=== PATIENT | female | born 1985 | race Caucasian/White ===

== ENCOUNTER 2017-11-10 11:08 | Emergency (ER) | payer OTHER ==
[~2017-11-10] VITALS: Ht 154.9 cm; Wt 81.3 kg
[~2017-11-10 11:08] MED LIST: Amoxicillin500 MG PO; Ativan1 MG PO; BENTYL10 MG PO; Benadryl 50 mg50 MG PO; CEPH500 PO; CLOM50A PO; CLON.5 PO; CODACE30 PO; CYCL10 PO; Cheratussin AC118 ML PO; DIPATR PO; DIVA125EC PO; DIVA500EC PO; FAMO40 PO; HYDACE5 PO; HYDMOR2 PO; HYDR1TAB94 PO; IBUP400 PO; IBUP800; IBUP800 PO; MECL25 PO; METR500 PO; MULVITMINE; MULVITMINE PO; Miralax17 GM PO; NAPR500 PO; NAPR550 PO; OLAN5 PO; OMEP40CA12 PO; ONDA4ODT MM; ONDA8 PO; OXYACE5T PO; OXYC5 PO; PALI6TA PO; PROM25; PROM25 PO; PROM25S; Percocet 5-3251 EACH PO; Phenergan25 M1 PO; QUET100 PO; QUET200 PO; RXCODACET PO; RXHYD5325 PO; RXHYDACE PO; RXHYDMOR2 PO; RXOXYACE PO; SERT100 PO; SUBOXONE 8 MG-1 EACH SL; SULTRIDS PO; Sucralfate1 GM PO; TAMS.4ER PO; TRAM50 PO; TRAZ100 PO; TRIM250 PO; Ultram50 MG PO; Zofran Odt4 MG SL; Zofran4 MG PO
[2017-11-10] MEDS ORDERED: BUPRENORPHN-NA1 EACH SL (11:30)
[2017-11-10] MEDS ORDERED: Adipex-P37.5 M1 PO (11:31)
[2017-11-10] MEDS ORDERED: Prednisone20 MG PO (12:09)
[2018-06-08] MEDS ORDERED: PRAZ1 PO (14:12)
[2018-06-08] MEDS ORDERED: QUET300 PO (14:12)
[2018-06-08] MEDS ORDERED: LAMO100 PO (14:13)
[2018-09-21] MEDS ORDERED: LITH300C PO (17:41)
[2018-09-21] MEDS ORDERED: Kristalose20 GM PO (18:39)
== END 2017-11-10 12:17 | disposition home or self-care (01) ==
LOC: ER 11:08
DX: R09.1 Pleurisy (principal); Z88.8 Allergy status to other drugs, medicaments and biological substances; Z79.899 Other long term (current) drug therapy; F31.9 Bipolar disorder, unspecified; Z87.891 Personal history of nicotine dependence
CPT/HCPCS: 71046; 99283

== ENCOUNTER → 2018-04-01 | Outpatient (CLI) | payer OTHER ==
[~2018-04-01] MED LIST changes: +Adipex-P37.5 M1 PO; +BUPRENORPHN-NA1 EACH SL; +Prednisone20 MG PO
== END ==
LOC: LAB SHORT 13:08 → LAB SRC 13:08
DX: Z51.81 Encounter for therapeutic drug level monitoring (principal); Z79.899 Other long term (current) drug therapy; Z87.898 Personal history of other specified conditions
CPT/HCPCS: G0480

== ENCOUNTER 2018-06-15 10:28 | Day surgery (SDC) | payer OTHER ==
[~2018-06-15] VITALS: Ht 154.9 cm; Wt 75.8 kg
[~2018-06-15 10:28] MED LIST changes: +LAMO100 PO; +PRAZ1 PO; +QUET300 PO
== END 2018-06-15 13:45 | disposition home or self-care (01) ==
LOC: ORSCSDS 10:28
PROVIDERS: Student in an Organized Health Care Education/Training Program
PROC: 0DBK8ZX Excision of Ascending Colon, Via Natural or Artificial Opening Endoscopic, Diagnostic (ICD-10-PCS; principal; 2018-06-15 11:45)
PROC: 0D5P8ZZ Destruction of Rectum, Via Natural or Artificial Opening Endoscopic (ICD-10-PCS; principal; 2018-06-15 11:45)
DX: K62.5 Hemorrhage of anus and rectum (principal); D12.2 Benign neoplasm of ascending colon; K55.20 Angiodysplasia of colon without hemorrhage; K64.4 Residual hemorrhoidal skin tags; K64.8 Other hemorrhoids; F31.9 Bipolar disorder, unspecified; F17.210 Nicotine dependence, cigarettes, uncomplicated; Z79.899 Other long term (current) drug therapy
CPT/HCPCS: 88305; J7120

== ENCOUNTER 2018-08-26 15:28 | Emergency (ER) | payer OTHER ==
[~2018-08-26] VITALS: Ht 154.9 cm; Wt 77.1 kg
[2018-08-26 15:51] LABS: Source, Urine Clean Catch
[2018-08-26 15:59] LABS: Appearance, Urine Hazy (Clear); Bilirubin, Urine Neg (Neg); Blood, Urine 2+ (Neg); Color, Urine Yellow (P-Yellow); Glucose Qualitative, Urine 2+ (Neg); Ketones, Urine 1+ (Neg); Leukocyte Esterase, Urine Neg (Neg); Nitrite, Urine Neg (Neg); Protein, Urine 1+ (Neg); Urobilinogen, Urine 1+ (Normal)
[2018-08-26 16:18] LABS: Squamous Epithelial Cells Mod /hpf (Few)
[2018-08-26 16:19] LABS: Bacteria Rare /hpf; White Blood Cells, Urine Not Seen /hpf (0-5)
[2018-08-26 16:56] LABS: BASOPHILS ABSOLUTE AUTO 0.02 K/mm3 (0.00-0.23); BASOPHILS PERCENT AUTO 0 % (0-2); EOSINOPHILS ABSOLUTE AUTO 0.08 K/mm3 (0.00-0.68); EOSINOPHILS PERCENT AUTO 1 % (0-6); Hematocrit 39.5 % (33.0-51.0); Hemoglobin 13.3 g/dL (11.5-16.0); IMMATURE GRAN ABSOLUTE AUTO 0.02 K/mm3 (0.00-0.10); IMMATURE GRAN PERCENT AUTO 0 % (0-1); LYMPHOCYTES ABSOLUTE AUTO 2.67 K/mm3 (0.84-5.20); LYMPHOCYTES PERCENT AUTO 31 % (21-46); MONOCYTES ABSOLUTE AUTO 0.48 K/mm3 (0.16-1.47); MONOCYTES PERCENT AUTO 6 % (4-13); Mean Corpuscular HGB 28.3 pg (26.0-34.0); Mean Corpuscular HGB Conc 33.7 g/dL (31.5-36.5); Mean Corpuscular Volume 84 fL (80-100); Mean Platelet Volume 9.2 fL (9.1-12.4); NEUTROPHILS ABSOLUTE AUTO 5.31 K/mm3 (1.96-9.15); NEUTROPHILS PERCENT AUTO 62 % (41-73); Platelet Count 322 K/mm3 (150-400); RDW Coefficient Variation 12.4 % (11.7-14.2); RDW Standard Deviation 38.2 fL (35.1-46.3); White Blood Cell Count 8.58 K/mm3 (4.00-11.30)
[2018-08-26 17:12] LABS: Alanine Aminotransfer (ALT/SGP 24 U/L (12-78); Albumin, Blood 3.7 g/dL (3.4-5.0); Alk Phos 108 U/L (50-136); Anion Gap 6 mmol/L (6-16); Aspartate Aminotrans (AST/SGOT 12 U/L (12-37); Bilirubin, Total 0.2 mg/dL (0.1-1.0); Blood Urea Nitrogen 12 mg/dL (8-24); CO2, Blood 28 mmol/L (21-32); Calcium, Blood 8.7 mg/dL (8.5-10.1); Chloride, Blood 103 mmol/L (98-108); Creatinine, Blood 0.57 mg/dL (0.40-1.00); Globulin, Blood 3.7 g/dL (2.2-4.0); Glomerular Filtration Rate >60 (60-); Glucose, Blood 90 mg/dL (70-99); Potassium, Blood 3.9 mmol/L (3.5-5.5); Sodium, Blood 137 mmol/L (136-145); Total Protein, Blood 7.4 g/dL (6.4-8.2)
[2018-08-26] MEDS ORDERED: Miralax17 GM PO (18:08)
[2018-08-26] MEDS ORDERED: Zofran Odt4 MG SL (18:08)
== END 2018-08-26 18:32 | disposition home or self-care (01) ==
LOC: ER 15:28
PROVIDERS: Emergency Medicine; Physician Assistant
DX: K59.00 Constipation, unspecified (principal); F31.9 Bipolar disorder, unspecified; F17.210 Nicotine dependence, cigarettes, uncomplicated; Z91.048 Other nonmedicinal substance allergy status; Z88.5 Allergy status to narcotic agent; Z88.8 Allergy status to other drugs, medicaments and biological substances; Z79.899 Other long term (current) drug therapy; Z87.442 Personal history of urinary calculi
CPT/HCPCS: 36415; 74176; 76770; 76856; 80053; 81001; 81025; 85025; 96361; 96374; 96375; 99284-25; J1885; J2405; J7030

== ENCOUNTER 2019-07-24 10:13 | Emergency (ER) | payer OTHER ==
[~2019-07-24] VITALS: Ht 154.9 cm; Wt 68.0 kg
[~2019-07-24 10:13] MED LIST changes: +Kristalose20 GM PO; +LITH300C PO
== END 2019-07-24 12:01 | disposition home or self-care (01) ==
LOC: ER 10:13
DX: S63.502A Unspecified sprain of left wrist, initial encounter (principal); F31.9 Bipolar disorder, unspecified; Z87.442 Personal history of urinary calculi; F17.210 Nicotine dependence, cigarettes, uncomplicated; Z91.048 Other nonmedicinal substance allergy status; Z88.8 Allergy status to other drugs, medicaments and biological substances; Z79.899 Other long term (current) drug therapy; X58.XXXA Exposure to other specified factors, initial encounter
CPT/HCPCS: 29125; 73110; 99283-25

== ENCOUNTER → 2020-05-15 | Outpatient (CLI) | payer OTHER ==
[~2020-05-15] MED LIST changes: +Coumadin5 MG PO; +GABA300 PO; +Jantoven5 MG PO; +Lovenox80 MG/0.8 SC; +Monodox100 MG PO; +Penicillin V P500 MG PO
== END | disposition home or self-care (01) ==
LOC: LAB 17:40 → LAB SHORT 17:40
DX: L08.9 Local infection of the skin and subcutaneous tissue, unspecified (principal)
CPT/HCPCS: 87070; 87075; 87147; 87205

== ENCOUNTER → 2020-05-17 | Outpatient (CLI) | payer OTHER | END | disposition home or self-care (01) | LOC: PLD 12:35 → LAB SHORT 12:35 | DX: M79.3 Panniculitis, unspecified (principal); K65.4 Sclerosing mesenteritis; Z51.81 Encounter for therapeutic drug level monitoring; Z79.899 Other long term (current) drug therapy | CPT/HCPCS: 88304 ==

== ENCOUNTER 2020-07-21 16:31 | Emergency (ER) | payer OTHER ==
[~2020-07-21] VITALS: Ht 154.9 cm; Wt 85.3 kg
[2020-07-21 17:18] LABS: BASOPHILS ABSOLUTE AUTO 0.05 K/mm3 (0.00-0.23); BASOPHILS PERCENT AUTO 1 % (0-2); EOSINOPHILS ABSOLUTE AUTO 0.32 K/mm3 (0.00-0.68); EOSINOPHILS PERCENT AUTO 4 % (0-6); Hematocrit 44.9 % (33.0-51.0); Hemoglobin 14.8 g/dL (11.5-16.0); IMMATURE GRAN ABSOLUTE AUTO 0.02 K/mm3 (0.00-0.10); IMMATURE GRAN PERCENT AUTO 0 % (0-1); LYMPHOCYTES ABSOLUTE AUTO 3.52 K/mm3 (0.84-5.20); LYMPHOCYTES PERCENT AUTO 38 % (21-46); MONOCYTES ABSOLUTE AUTO 0.53 K/mm3 (0.16-1.47); MONOCYTES PERCENT AUTO 6 % (4-13); Mean Corpuscular Volume 85 fL (80-100); Mean Platelet Volume 9.1 fL (9.1-12.4); NEUTROPHILS ABSOLUTE AUTO 4.77 K/mm3 (1.96-9.15); NEUTROPHILS PERCENT AUTO 52 % (41-73); Platelet Count 357 K/mm3 (150-400); RDW Coefficient Variation 13.2 % (11.7-14.2); RDW Standard Deviation 41.1 fL (35.1-46.3); Red Blood Cell Count 5.29 M/mm3 (3.80-5.20); White Blood Cell Count 9.21 K/mm3 (4.00-11.30)
[2020-07-21 17:37] LABS: Alanine Aminotransfer (ALT/SGP 24 U/L (12-78); Albumin, Blood 3.8 g/dL (3.4-5.0); Albumin/Globulin Ratio 0.9 (0.8-1.8); Alk Phos 108 U/L (50-136); Anion Gap 5 mmol/L (6-16); Aspartate Aminotrans (AST/SGOT 13 U/L (12-37); Bilirubin, Total 0.1 mg/dL (0.1-1.0); Blood Urea Nitrogen 10 mg/dL (8-24); CO2, Blood 25 mmol/L (21-32); Calcium, Blood 9.1 mg/dL (8.5-10.1); Chloride, Blood 111 mmol/L (98-108); Creatinine, Blood 0.63 mg/dL (0.40-1.00); Globulin, Blood 4.1 g/dL (2.2-4.0); Glomerular Filtration Rate >60 (60-); Glucose, Blood 108 mg/dL (70-99); Potassium, Blood 3.8 mmol/L (3.5-5.5); Sodium, Blood 141 mmol/L (136-145); Total Protein, Blood 7.9 g/dL (6.4-8.2)
[2020-07-21 18:22] LABS: Source, Urine Clean Catch
[2020-07-21 18:35] LABS: Appearance, Urine Hazy (Clear); Bilirubin, Urine Neg (Neg); Blood, Urine 5+ (Neg); Color, Urine Amber (P-Yellow); Glucose Qualitative, Urine Neg (Neg); Ketones, Urine Neg (Neg); Leukocyte Esterase, Urine Neg (Neg); Nitrite, Urine Neg (Neg); Protein, Urine 1+ (Neg); Specific Gravity, Urine 1.025 (1.003-1.022); Urobilinogen, Urine 1+ (Normal)
[2020-07-21 18:41] LABS: Bacteria Many /hpf; Mucus Mod (0-Heavy); Squamous Epithelial Cells Mod /hpf (Few)
[2020-07-21] MEDS ORDERED: CEFP200 PO (19:55)
== END 2020-07-21 20:48 | disposition home or self-care (01) ==
LOC: ER 16:31
PROVIDERS: Physician Assistant
DX: R10.9 Unspecified abdominal pain (principal); R11.0 Nausea; F17.210 Nicotine dependence, cigarettes, uncomplicated; Z91.09 Other allergy status, other than to drugs and biological substances; Z88.8 Allergy status to other drugs, medicaments and biological substances; Z79.01 Long term (current) use of anticoagulants; Z79.899 Other long term (current) drug therapy
CPT/HCPCS: 36415; 74176; 76705; 80053; 81001; 81025; 83690; 85025; 87086; 96361; 96374; 96375; 99284-25; A9270-GY; J1885; J2405; J7030

== ENCOUNTER → 2020-09-13 | Outpatient (CLI) | payer OTHER ==
[~2020-09-13] MED LIST changes: +CEFP200 PO
[2020-09-13 14:53] LABS: Source, Urine Clean Catch
[2020-09-13 17:49] LABS: Appearance, Urine Hazy (Clear); Bilirubin, Urine Neg (Neg); Blood, Urine Neg (Neg); Color, Urine Yellow (P-Yellow); Glucose Qualitative, Urine Neg (Neg); Ketones, Urine Neg (Neg); Leukocyte Esterase, Urine Neg (Neg); Nitrite, Urine Neg (Neg); Protein, Urine Neg (Neg); Urobilinogen, Urine NORM (Normal)
[2020-09-13 18:40] LABS: Bacteria Few /hpf; Mucus Light (0-Heavy); Red Blood Cells, Urine 0-2 /hpf (0-2); Squamous Epithelial Cells Mod /hpf (Few)
== END | disposition home or self-care (01) ==
LOC: LAB SRC 14:50 → LAB SHORT 14:50
PROVIDERS: Nurse Practitioner Family
DX: R81 Glycosuria (principal)
CPT/HCPCS: 81001

== ENCOUNTER 2021-12-20 23:00 | Emergency (ER) | payer OTHER ==
[~2021-12-20] VITALS: Ht 154.9 cm; Wt 73.9 kg
[2021-12-20] MEDS ORDERED: Cleocin HCl300 MG PO (23:28)
== END 2021-12-20 23:55 | disposition home or self-care (01) ==
LOC: ER 23:00
DX: K04.7 Periapical abscess without sinus (principal); K02.9 Dental caries, unspecified; R68.84 Jaw pain; Z91.048 Other nonmedicinal substance allergy status; Z88.8 Allergy status to other drugs, medicaments and biological substances; Z79.899 Other long term (current) drug therapy; Z79.01 Long term (current) use of anticoagulants; F17.210 Nicotine dependence, cigarettes, uncomplicated
CPT/HCPCS: 99283; A9270

== ENCOUNTER 2022-01-10 07:06 | Emergency (ER) | payer OTHER ==
[~2022-01-10] VITALS: Ht 154.9 cm; Wt 73.9 kg
[~2022-01-10 07:06] MED LIST changes: +Cleocin HCl300 MG PO
[2022-01-10] MEDS ORDERED: PRAMIPEXOLE0.125 M1 PO (07:34)
[2022-01-10] MEDS ORDERED: Hydroxyzine HCl50 MG (07:34)
[2022-01-10] MEDS ORDERED: DEPAKOTE ER500 M2 PO (07:34)
== END 2022-01-10 08:45 | disposition home or self-care (01) ==
LOC: ER 07:06
DX: S86.111A Strain of other muscle(s) and tendon(s) of posterior muscle group at lower leg level, right leg, initial encounter (principal); Z79.899 Other long term (current) drug therapy; F17.200 Nicotine dependence, unspecified, uncomplicated; X58.XXXA Exposure to other specified factors, initial encounter
CPT/HCPCS: 93971; 99283-25

== ENCOUNTER 2023-09-16 10:44 | Emergency (ER) | payer OTHER ==
[~2023-09-16] VITALS: Ht 154.9 cm; Wt 73.0 kg
[~2023-09-16 10:44] MED LIST changes: +DEPAKOTE ER500 M2 PO; +Hydroxyzine HCl50 MG; +PRAMIPEXOLE0.125 M1 PO; +Robaxin750 MG PO
[2023-09-16] MEDS ORDERED: IBUP800 PO (14:38)
[2023-09-16 15:01] VITALS: BP 153/99
[2023-09-16] MEDS ORDERED: NEURONTIN40010 PO (15:04)
[2023-09-16] MEDS ORDERED: CAPLYTA42 MG PO (15:04)
[2023-09-16] MEDS ORDERED: QUET200 PO (15:04)
[2023-09-16] MEDS ORDERED: CHLO25A PO (15:04)
[2023-09-16] MEDS ORDERED: PRAZOSIN HCL1 M2 PO (15:05)
== END 2023-09-16 15:07 | disposition home or self-care (01) ==
LOC: ER 10:44
DX: R07.81 Pleurodynia (principal); R51.9 Headache, unspecified; Y04.0XXA Assault by unarmed brawl or fight, initial encounter; F31.9 Bipolar disorder, unspecified; F17.210 Nicotine dependence, cigarettes, uncomplicated; Z88.8 Allergy status to other drugs, medicaments and biological substances; Z91.048 Other nonmedicinal substance allergy status; Z79.899 Other long term (current) drug therapy; Z79.01 Long term (current) use of anticoagulants
CPT/HCPCS: 70450; 71101; 99284-25; A9270

== ENCOUNTER 2024-08-02 18:14 | Emergency (ER) | payer OTHER ==
[~2024-08-02] VITALS: Ht 170.2 cm; Wt 77.1 kg
[~2024-08-02 18:14] MED LIST changes: +CAPLYTA42 MG PO; +CHLO25A PO; +NEURONTIN40010 PO; +PRAZOSIN HCL1 M2 PO
[2024-08-02 18:32] LABS: Calcium, Ionized (POC) 1.07 mmol/L (1.10-1.46); Chloride (POC) 102 mmol/L (98-108); Creatinine (POC) 1.1 mg/dL (0.6-1.0); Glucose (ISTAT POC) 415 mg/dL (70-99); Hemoglobin (POC) 13.6 g/dL (12.0-16.0); Potassium (POC) 4.8 mmol/L (3.5-5.5); Sodium (POC) 137 mmol/L (135-148); Total CO2 (POC) 15 mmol/L (21-32)
[2024-08-02] MEDS ORDERED: EPINEPhrine HCl 0.1 MG/ML 10ML SYR IV ONE (20:59)
== END 2024-08-02 20:20 ==
LOC: ER 18:14
PROVIDERS: Student in an Organized Health Care Education/Training Program
DX: T71.161A Asphyxiation due to hanging, accidental, initial encounter (principal); F17.210 Nicotine dependence, cigarettes, uncomplicated; Z91.048 Other nonmedicinal substance allergy status; Z88.8 Allergy status to other drugs, medicaments and biological substances; Z79.899 Other long term (current) drug therapy
CPT/HCPCS: 80047; 85014; 92950; 99285-25